=== PATIENT | female | born 1950 | race Caucasian/White ===

== ENCOUNTER 2016-04-11 19:39 | Emergency (ER) | payer OTHER ==
[~2016-04-11] VITALS: Ht 180.3 cm; Wt 93.6 kg
[~2016-04-11 19:39] MED LIST: ACTOPLUS MET1 TABLE1 PO; ACTOS15 MG PO; ADVIL PM1 TABLET PO; ASPIR-LOW81 MG PO; AZITHROMYCIN500 M1 PO; BACTRIM,SEPT1 TABLET PO; CIPRO500 MG PO; DIABETA2.5 MG PO; DILAUDID4 MG PO; DIOVAN HCT 31 TABLET PO; GLYBURIDE2.5 MG PO; HYDROCODON-ACE1 EAC7 PO; HYDROMORPHONE HC4 MG PO; K-DUR20 MEQ PO; KEFLEX500 MG PO; KLOR-CON M2020 MEQ PO; LEVEMIR FL100 UNIT/1 SC; LEVEMIR100 UNIT/2 SC; LISINOPRIL10 MG PO; LO-DOSE ASPIRIN81 M1 PO; LOPRESSOR25 MG PO; LOVENOX40 MG/0.4 SC; MIRTAZAPINE15 MG PO; MOBIC7.5 MG PO; NAFCIL 2 G2 GM/100 M IV; PERCOCET 5/31 TABLET PO; PROTONIX40 MG PO; REGLAN10 MG PO; VICODIN 5-3001 EACH PO; ZESTORETIC 20-1 EAC1 PO; ZOCOR80 MG PO; ZOFRAN4 MG PO; ZOLPIDEM TARTRAT5 MG PO
[2016-04-11 20:16] LABS: HEMATOCRIT 35.4 % (36.0-46.0); MCH 29.2 PG (29.0-34.0); MCHC 34.2 G/DL (30.0-36.0); MCV 85.3 FL (83-99); MEAN PLAT.VOLUME 12.4 uM^3 (9.5-12.4); PLATELET COUNT 168 K/uL (156-360); RBC DIS.WIDTH-CV 13.3 % (11.8-14.6); RBC DIS.WIDTH-SD 40.7 % (39-53); RED BLOOD COUNT 4.15 M/uL (3.80-5.20); WHITE BLOOD COUNT 5.2 K/uL (4.1-10.2)
[2016-04-11] MEDS ORDERED: NOVOLOG PE100 UNITS/ SC (20:37)
[2016-04-11] MEDS ORDERED: SIMVASTATIN80 MG PO (20:37)
[2016-04-11] MEDS ORDERED: PANTOPRAZOLE SO40 MG PO (20:38)
[2016-04-11] MEDS ORDERED: JANUVIA100 MG PO (20:38)
[2016-04-11] MEDS ORDERED: LEVEMIR FL100 UNIT/1 SC (20:38)
[2016-04-11 20:39] LABS: TROP-I INTERPRETATION NEGATIVE; TROPONIN-I < 0.01 ng/mL (0.0-0.30)
[2016-04-11] MEDS ORDERED: LYRICA75 MG PO (20:39)
[2016-04-11] MEDS ORDERED: METOCLOPRAMIDE10 MG PO (20:39)
[2016-04-11] MEDS ORDERED: ADVIL200 MG PO (20:41)
[2016-04-11 20:43] LABS: CHLORIDE 106 mEq/L (99-109); POTASSIUM 4.1 mEq/L (3.7-5.4); SODIUM 138 mEq/L (136-147)
[2016-04-11 20:44] LABS: GLUCOSE 279 mg/dL (70-99)
[2016-04-11 20:46] LABS: ANION GAP 9 MEQ/L (2-14)
[2016-04-11 20:48] LABS: GFR ESTIMATE (CALCULATED) 34 mL/min/
[2016-04-11 20:49] LABS: UREA NITROGEN (BUN) 26 mg/dL (9-23)
[2016-04-11 21:44] VITALS: BP 120/75
== END 2016-04-11 21:45 | disposition home or self-care (01) ==
LOC: EME → EDBD 19:39 → EME 19:39
PROVIDERS: Emergency Medicine
DX: E86.0 Dehydration (principal); R55 Syncope and collapse; I95.1 Orthostatic hypotension; W18.30XA Fall on same level, unspecified, initial encounter; E11.9 Type 2 diabetes mellitus without complications; E78.5 Hyperlipidemia, unspecified; I10 Essential (primary) hypertension; K21.9 Gastro-esophageal reflux disease without esophagitis; Z79.82 Long term (current) use of aspirin
CPT/HCPCS: 70450; 80048; 84484; 85027; 93005; 99281; 99284; J7030